=== PATIENT | male | born 1975 ===

== ENCOUNTER 2016-06-21 14:20 | Emergency (ER) | payer SELFPAY ==
[2016-06-21 14:20] VITALS: BMI 25.8
[2016-06-21 14:27] VITALS: BP 139/91; PULSE 100; RESP 20; TEMP 97.9; O2SAT 99
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
[2016-06-21] MEDS ORDERED: Acetaminophen-Codeine 300/30 mg Tab PO STA (14:49)
[2016-06-21] MEDS ORDERED: Acetaminophen-Codeine 300/30 mg Tab PO ONE (15:02)
== END 2016-06-21 15:06 | disposition home or self-care (01) ==
LOC: C.ER 14:20
DX: S86.811A Strain of other muscle(s) and tendon(s) at lower leg level, right leg, initial encounter (principal); W10.9XXA Fall (on) (from) unspecified stairs and steps, initial encounter

== ENCOUNTER 2016-10-08 14:52 | Emergency (ER) | payer OTHER ==
[2016-10-08 15:23] VITALS: BMI 25.0
[2016-10-08 15:24] VITALS: BP 131/88; PULSE 81; RESP 18; TEMP 98.1; O2SAT 99
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
== END 2016-10-08 16:30 | disposition home or self-care (01) ==
LOC: C.ER 14:52
DX: S13.4XXA Sprain of ligaments of cervical spine, initial encounter (principal); V43.52XA Car driver injured in collision with other type car in traffic accident, initial encounter; M62.838 Other muscle spasm

== ENCOUNTER 2017-11-25 07:04 | Emergency (ER) | payer OTHER ==
[2017-11-25 07:05] VITALS: BMI 25.0
[2017-11-25 07:13] VITALS: RESP 18
[2017-11-25] MEDS ORDERED: Sodium Chloride 0.9% 1,000 ML IV STA (07:24)
[2017-11-25] MEDS ORDERED: Sodium Chloride 0.9% 1,000 ML ONE (07:39)
[2017-11-25 08:03] LABS: BASO # 0.1 K/uL (0.0-0.2); BASO % 0.7 % (0.0-2.0); HEMOGLOBIN 14.3 g/dL (12.0-18.0); LYMPH # 0.9 K/uL (1.0-4.3); LYMPH % 4.9 % (20.0-40.0); MEAN CELL VOLUME 80.1 fL (80.0-94.0); MEAN CORPUSCULAR HEMOGLOBIN 26.9 pg (27.0-31.0); MEAN CORPUSCULAR HGB CONC 33.6 g/dL (33.0-37.0); MEAN PLATELET VOLUME 8.6 fL (7.2-11.7); MONO # 0.5 K/uL (0.0-0.8); NEUT # 16.1 K/uL (1.8-7.0); NEUT % 91.4 % (50.0-75.0); PLATELET COUNT 301 K/uL (130-400); RBC 5.33 Mil/uL (4.40-5.90); RED CELL DISTRIBUTION WIDTH 13.9 % (11.5-14.5); WHITE BLOOD COUNT 17.6 K/uL (4.8-10.8)
[2017-11-25 08:14] LABS: URINE AMORPHOUS SEDIMENT FEW /ul (<OCC); URINE BILIRUBIN NEGATIVE (NEGATIVE); URINE BLOOD NEGATIVE (NEGATIVE); URINE CLARITY Hazy (Clear); URINE COLOR Yellow (YELLOW); URINE GLUCOSE (UA) NORMAL (Normal); URINE LEUKOCYTE ESTERASE NEG Leu/uL (Negative); URINE PROTEIN NEGATIVE (NEGATIVE); URINE UROBILINOGEN NORMAL mg/dL (0.2-1.0)
[2017-11-25 08:20] LABS: INR 1.2; PROTHROMBIN TIME 12.6 SECONDS (9.7-12.2)
[2017-11-25 08:25] LABS: BLOOD UREA NITROGEN 16 mg/dL (9-20); CALCIUM 9.1 mg/dl (8.6-10.4); GFR NON-AFRICAN AMERICAN > 60; LIPASE 138 U/L (23-300)
[2017-11-25 08:31] LABS: ALB/GLOB RATIO 1.4 (1.0-2.1); ALBUMIN 4.9 g/dL (3.5-5.0); ALT/SGPT 22 U/L (21-72); AST/SGOT 44 U/L (17-59)
[2017-11-25 09:05] LABS: BANDS 2 % (0-2); BASOPHIL 1 % (0-2); LYMPHOCYTE 7 % (20-40); MONOCYTE 3 % (0-10); NEUTROPHIL 87 % (50-75); PLATELET ESTIMATE NORMAL (NORMAL); TOTAL CELLS COUNTED 100
[2017-11-25 09:09] VITALS: TEMP 98
--- NOTE | 2017-11-25 10:11 | C.PDOC ---
History Of Present Illness 42 y/o male presents to ED for evaluation of abdominal pain associated with nausea since yesterday. Otherwise, denies vomiting, diarrhea, constipation, urinary symptoms, back pain, fever, or chills. Time Seen by Provider: 11/25/17 07:20 Chief Complaint (Nursing): Abdominal Pain History Per: Patient History/Exam Limitations: no limitations Onset/Duration Of Symptoms: Days Current Symptoms Are (Timing): Still Present Location Of Pain/Discomfort: RUQ, Epigastric, LUQ Radiation Of Pain To:: None Quality Of Discomfort: "Pain" Associated Symptoms: Nausea. denies: Loss Of Appetite, Back Pain, Chest Pain, Constipation, Urinary Symptoms Exacerbating Factors: None Alleviating Factors: None Recent travel outside of the [place]: No Additional History Per: Patient Past Medical History Reviewed: Historical Data, Nursing Documentation, Vital Signs Vital Signs: Last Vital Signs Temp 98 F 11/25/17 12:03 Pulse 69 11/25/17 12:03 Resp 18 11/25/17 12:03 BP 126/79 11/25/17 12:03 Pulse Ox 99 11/25/17 17:07 - Medical History PMH: HTN, Hypercholesterolemia Family History: States: Unknown Family Hx - Social History Hx Tobacco Use: No Hx Alcohol Use: No Hx Substance Use: No - Immunization History Hx Tetanus Toxoid Vaccination: No Hx Influenza Vaccination: No Hx Pneumococcal Vaccination: No Review Of Systems Except As Marked, All Systems Reviewed And Found Negative. Constitutional: Negative for: Fever, Chills Cardiovascular: Negative for: Chest Pain Respiratory: Negative for: Shortness of Breath Gastrointestinal: Positive for: Nausea, Abdominal Pain. Negative for: Vomiting , Diarrhea, Constipation Genitourinary: Negative for: Dysuria, Frequency, Hematuria, Penile Discharge Musculoskeletal: Negative for: Back Pain Neurological: Negative for: Headache, Dizziness Physical Exam - Physical Exam Appears: Non-toxic, No Acute Distress Skin: Normal Color, Warm, Dry Head: Atraumatic, Normacephalic Eye(s): bilateral: Normal Inspection Oral Mucosa: Moist Neck: Normal ROM, Supple Cardiovascular: Rhythm Regular, No Murmur Respiratory: Normal Breath Sounds, No Rales, No Rhonchi, No Wheezing Gastrointestinal/Abdominal: Bowel Sounds, Soft, Tenderness (epigastric, RUQ, LUQ ), No Distention, No Guarding, No Rebound Back: No CVA Tenderness Extremity: Normal ROM Neurological/Psych: Oriented x3, Normal Speech ED Course And Treatment - Laboratory Results Result Diagrams: 11/25/17 07:40 11/25/17 07:40 O2 Sat by Pulse Oximetry: 99 (on RA) Pulse Ox Interpretation: Normal - CT Scan/US Abdomen Ultrasound Other Rad Studies (CT/US): Read By Radiologist, Radiology Report Reviewed CT/US Interpretation: FINDINGS: LIVER: Measures 18.7 cm in sagittal dimension. 1.1 x 1.5 x 1.0 cm echogenic lesion within the right hepatic lobe measures approximately 1.0 x 1.1 x 1.5 cm. The main portal vein appears patent with normal directional flow. No intrahepatic bile duct dilatation. GALLBLADDER: Cholelithiasis. No gallbladder wall thickening. Negative sonographic Merchant's sign as assessed by the jr. systems administrator. COMMON BILE DUCT: Measures 6 mm. PANCREAS: Not well visualized. RIGHT KIDNEY: Measures 11.2 x 4.8 x 6.2 cm. No obstructing calculus or hydronephrosis identified. LEFT KIDNEY: Measures 10.2 x 5.5 x 4.6cm. No obstructing calculus or hydronephrosis identified. SPLEEN: Measures approximately 10.4 cm. AORTA: Limited views appear unremarkable. IVC: Limited views appear unremarkable. OTHER FINDINGS: None. IMPRESSION: Cholelithiasis. 1.1 x 1.5 x 1.0 cm echogenic lesion identified within the right hepatic lobe, indeterminate. Cross-sectional imaging may be considered for further characterization if indicated. Medical Decision Making Medical Decision Making: Plan: Blood work Urinalysis Abdomen ultrasound Protonix Zofran IV fluids Progress note: On re-eval, pt is resting comfortably, no acute distress. Abdomen remains soft. Pt reports feeling better. Patient is being discharged home and is instructed to follow up with PMD and eye specialist within 2-3 days. Return to ED if symptoms worsen. Disposition - Disposition Referrals: Keynoa Villalobos MD [Medical Doctor] - Flo Barroso MD [Staff Provider] - Disposition: HOME/ ROUTINE Disposition Time: 11:53 Condition: STABLE Additional Instructions: Follow up with PMD and eye specialist within 2-3 days. Return to ED immediately if feel worse. Instructions: Gallstones Forms: [employer] (Hebrew), Work Excuse - Clinical Impression Clinical Impression: Cholelithiasis - PA / LOCUM TENENS / Resident Statement MD/DO has reviewed & agrees with the documentation as recorded. - Scribe Statement The provider has reviewed the documentation as recorded by the Scribe Vicky Saba All medical record entries made by the Michael were at my direction and personally dictated by me. I have reviewed the chart and agree that the record accurately reflects my personal performance of the history, physical exam, medical decision making, and the department course for this patient. I have also personally directed, reviewed, and agree with the discharge instructions and disposition.
--- NOTE | 2017-11-25 10:43 | US ---
HISTORY: ruq pain, epigastric pain COMPARISON: None available TECHNIQUE: Sonographic evaluation of the abdomen. FINDINGS: LIVER: Measures 18.7 cm in sagittal dimension. 1.1 x 1.5 x 1.0 cm echogenic lesion within the right hepatic lobe measures approximately 1.0 x 1.1 x 1.5 cm. The main portal vein appears patent with normal directional flow. No intrahepatic bile duct dilatation. GALLBLADDER: Cholelithiasis. No gallbladder wall thickening. Negative sonographic Merchant's sign as assessed by the chemical process equipment operator. COMMON BILE DUCT: Measures 6 mm. PANCREAS: Not well visualized. RIGHT KIDNEY: Measures 11.2 x 4.8 x 6.2 cm. No obstructing calculus or hydronephrosis identified. LEFT KIDNEY: Measures 10.2 x 5.5 x 4.6cm. No obstructing calculus or hydronephrosis identified. SPLEEN: Measures approximately 10.4 cm. AORTA: Limited views appear unremarkable. IVC: Limited views appear unremarkable. OTHER FINDINGS: None. IMPRESSION: Cholelithiasis. 1.1 x 1.5 x 1.0 cm echogenic lesion identified within the right hepatic lobe, indeterminate. Cross-sectional imaging may be considered for further characterization if indicated.
[2017-11-25 12:04] VITALS: BP 126/79; PULSE 69
[2017-11-25 17:07] VITALS: O2SAT 99
== END 2017-11-25 12:03 | disposition home or self-care (01) ==
LOC: C.ER 07:04
DX: K80.20 Calculus of gallbladder without cholecystitis without obstruction (principal)
CPT/HCPCS: 76700; 80053; 81001; 83690; 85025; 85610; 85730; 96361; 96374; 96375; 99284; C9113; J1885; J2405; J7030

== ENCOUNTER 2018-04-22 06:47 | Emergency (ER) | payer OTHER ==
[2018-04-22 06:47] VITALS: BMI 25.0
[2018-04-22 07:01] VITALS: TEMP 98.4; O2SAT 100
[2018-04-22] MEDS ORDERED: Aspirin 325 mg EC Tablets PO STA (07:13)
[2018-04-22 07:20] LABS: BASO # 0.1 K/uL (0.0-0.2); BASO % 0.9 % (0.0-2.0); EOS # 0.1 K/uL (0.0-0.7); HEMOGLOBIN 15.2 g/dL (12.0-18.0); LYMPH # 1.9 K/uL (1.0-4.3); LYMPH % 31.4 % (20.0-40.0); MEAN CELL VOLUME 81.2 fL (80.0-94.0); MEAN CORPUSCULAR HEMOGLOBIN 26.7 pg (27.0-31.0); MEAN CORPUSCULAR HGB CONC 32.9 g/dL (33.0-37.0); MEAN PLATELET VOLUME 8.4 fL (7.2-11.7); MONO # 0.4 K/uL (0.0-0.8); MONO % 5.9 % (0.0-10.0); NEUT # 3.6 K/uL (1.8-7.0); NEUT % 59.8 % (50.0-75.0); NRBC % 0.1 % (0.0-2.0); RBC 5.68 Mil/uL (4.40-5.90); RED CELL DISTRIBUTION WIDTH 13.6 % (11.5-14.5)
[2018-04-22] MEDS ORDERED: Aspirin 325 mg EC Tablets PO ONE (07:21)
[2018-04-22 07:28] LABS: WHITE BLOOD COUNT 6.1 K/uL (4.8-10.8)
--- NOTE | 2018-04-22 07:28 | C.PDOC ---
History Of Present Illness 42 year old male presents to the ED for evaluation of intermediate left sided chest pain for 1 week. The patient describes the chest pain as dull. He reports having a headache and feeling lightheaded since last night. Denies fever, chills, shortness of breath, cough, and any other associated symptoms. Time Seen by Provider: 04/22/18 07:04 Chief Complaint (Nursing): Chest Pain History Per: Patient History/Exam Limitations: no limitations Onset/Duration Of Symptoms: Days Current Symptoms Are (Timing): Still Present Severity: Mild Pain Scale Rating Of: 4 Quality: Dull Associated Symptoms: denies: Nausea, Dyspnea Modifying Factors: None Exacerbating Factors: None Alleviating Factors: None Recent travel outside of the [place]: No Past Medical History Reviewed: Historical Data, Nursing Documentation, Vital Signs Vital Signs: Last Vital Signs Temp 98.4 F 04/22/18 06:59 Pulse 79 04/22/18 06:59 Resp 16 04/22/18 06:59 BP 153/89 H 04/22/18 06:59 Pulse Ox 100 04/22/18 06:59 - Medical History PMH: HTN, Hypercholesterolemia (not taking meds) Family History: States: Unknown Family Hx - Social History Hx Tobacco Use: No Hx Alcohol Use: No Hx Substance Use: No - Immunization History Hx Tetanus Toxoid Vaccination: No Hx Influenza Vaccination: No Hx Pneumococcal Vaccination: No Review Of Systems Constitutional: Negative for: Fever Eyes: Negative for: Pain ENT: Negative for: Ear Pain Cardiovascular: Positive for: Chest Pain Respiratory: Negative for: Cough, Shortness of Breath Gastrointestinal: Negative for: Nausea Musculoskeletal: Negative for: Neck Pain Skin: Negative for: Rash Neurological: Negative for: Weakness Psych: Negative for: Anxiety Physical Exam - Physical Exam Appears: Well, Non-toxic Skin: Normal Color Head: Atraumatic Eye(s): bilateral: Normal Inspection, PERRL, EOMI Ear(s): Bilateral: Normal Nose: Normal Oral Mucosa: Moist Tongue: Normal Appearing Lips: Normal Appearing Throat: Normal Neck: Normal, Normal ROM Lymphatic: Deferred Chest: Symmetrical Cardiovascular: Rhythm Regular, No Edema Respiratory: Normal Breath Sounds Gastrointestinal/Abdominal: Normal Exam Back: Normal Inspection Extremity: Normal ROM, No Pedal Edema Extremity: Bilateral: Atraumatic Pulses: Left Carotid: Normal, Right Carotid: Normal, Left Radial: Normal, Right Radial: Normal Neurological/Psych: Oriented x3, Normal Speech Disoriented To: Person ED Course And Treatment - Laboratory Results Result Diagrams: 04/22/18 07:17 04/22/18 07:17 ECG: Interpreted By Me ECG Rhythm: Sinus Rhythm Interpretation Of ECG: No ST elevation. QT normal. Rate From EC O2 Sat by Pulse Oximetry: 100 (RA) Pulse Ox Interpretation: Normal - Radiology CXR: Interpreted by Me CXR Interpretation: Yes: No Acute Disease Medical Decision Making Medical Decision Making: Initial plan: -EKG -Blood sent. -CXR -Aspirin Progress/Update: No signs of ACS. Patient will follow up with his PMD, BP meds will be added. Prescribed Enalapril Maleate and Aspirin. Patient stable for discharge home. Disposition - Disposition Disposition: HOME/ ROUTINE Disposition Time: 07:59 Condition: STABLE Prescriptions: Aspirin [Adult Aspirin] 81 mg PO DAILY #14 tablet. Enalapril Maleate 5 mg PO DAILY 14 Days tablet Instructions: Chest Pain Forms: Gen Discharge Inst Sri Lankan, General Discharge Instructions, [employer] (Belizean), Work Excuse - POA Present On Arrival: None - Clinical Impression Clinical Impression: Chest pain - Scribe Statement The provider has reviewed the documentation as recorded by the Scribe (Saranya Nieves) Provider Attestation: All medical record entries made by the Scribe were at my direction and personally dictated by me. I have reviewed the chart and agree that the record accurately reflects my personal performance of the history, physical exam, medical decision making, and the department course for this patient. I have also personally directed, reviewed, and agree with the discharge instructions and disposition.
[2018-04-22 07:33] LABS: ALB/GLOB RATIO 1.5 (1.0-2.1); ALBUMIN 4.8 g/dL (3.5-5.0); ALT/SGPT 25 U/L (21-72); AST/SGOT 23 U/L (17-59); BLOOD UREA NITROGEN 15 mg/dL (9-20); CALCIUM 9.1 mg/dl (8.6-10.4); GFR NON-AFRICAN AMERICAN > 60
[2018-04-22 08:19] VITALS: BP 130/79; PULSE 71; RESP 13
--- NOTE | 2018-04-22 10:13 | RAD ---
Date of service: 04/22/2018 HISTORY: chest pain COMPARISON: Chest radiographs 01/05/2014. FINDINGS: LUNGS: No active pulmonary disease. PLEURA: No significant pleural effusion identified, no pneumothorax apparent. CARDIOVASCULAR: No aortic atherosclerotic calcification present. Normal cardiac size. No pulmonary vascular congestion. OSSEOUS STRUCTURES: No significant abnormalities. VISUALIZED UPPER ABDOMEN: Limited elevation left hemidiaphragm. OTHER FINDINGS: None. IMPRESSION: Nonspecific limited elevation left hemidiaphragm. No acute infiltrate, pleural effusion or pneumothorax. No pulmonary vascular congestion.
--- NOTE | 2018-04-24 14:44 | CARD ---
APPROVED REPORT Date of service: 04/22/2018 EKG Measurement Heart [id number] <Conclusion> Normal sinus rhythm Normal ECG
== END 2018-04-22 08:20 | disposition home or self-care (01) ==
LOC: C.ER 06:47
DX: R07.9 Chest pain, unspecified (principal)

== ENCOUNTER 2018-06-02 06:47 | Outpatient (CLI) | payer OTHER | END 2018-06-02 06:48 | disposition home or self-care (01) | LOC: C.CARD 06:47 | DX: R07.9 Chest pain, unspecified (principal) ==

== ENCOUNTER 2018-06-25 05:20 | Emergency (ER) | payer OTHER ==
[2018-06-25 05:21] VITALS: BMI 25.0
[2018-06-25 05:31] VITALS: O2SAT 100
--- NOTE | 2018-06-25 05:39 | C.PDOC ---
History Of Present Illness Patient presents with abdominal pain after eating out" oily thing" Cramping , burning, decreased po intake. No diarrhea Time Seen by Provider: 06/25/18 05:39 Chief Complaint (Nursing): Abdominal Pain History Per: Patient History/Exam Limitations: no limitations Onset/Duration Of Symptoms: Hrs Current Symptoms Are (Timing): Still Present Context: Food Severity: Moderate Pain Scale Rating Of: 4 Location Of Pain/Discomfort: Diffuse Radiation Of Pain To:: None Quality Of Discomfort: Dull, Burning Associated Symptoms: Nausea, Diarrhea. denies: Fever, Chills Alleviating Factors: None Last Bowel Movement: Today Recent travel outside of the [place]: No Additional History Per: Patient Past Medical History Reviewed: Historical Data, Nursing Documentation, Vital Signs Vital Signs: Last Vital Signs Temp 97.6 F 06/25/18 05:26 Pulse 60 06/25/18 05:26 Resp 20 06/25/18 05:26 BP 160/82 H 06/25/18 05:26 Pulse Ox 100 06/25/18 05:26 - Medical History PMH: HTN, Hypercholesterolemia (not taking meds) Family History: States: No Known Family Hx - Social History Hx Tobacco Use: No Hx Alcohol Use: No Hx Substance Use: No - Immunization History Hx Tetanus Toxoid Vaccination: No Hx Influenza Vaccination: No Hx Pneumococcal Vaccination: No Review Of Systems Constitutional: Negative for: Fever, Chills Cardiovascular: Negative for: Chest Pain Respiratory: Negative for: Shortness of Breath Gastrointestinal: Positive for: Nausea, Vomiting, Abdominal Pain Musculoskeletal: Negative for: Back Pain Skin: Negative for: Rash Neurological: Negative for: Weakness Psych: Negative for: Anxiety Physical Exam - Physical Exam Appears: Non-toxic, No Acute Distress Skin: Warm, Dry Head: Normacephalic Eye(s): bilateral: Normal Inspection Oral Mucosa: Moist Neck: Supple Chest: Symmetrical Cardiovascular: Rhythm Regular Respiratory: No Rales, No Rhonchi, No Wheezing Gastrointestinal/Abdominal: Soft, Tenderness, Distention, No Guarding, No Rebound Back: No CVA Tenderness Extremity: Normal ROM Extremity: Bilateral: Atraumatic Pulses: Left Dorsalis Pedis: Normal, Right Dorsalis Pedis: Normal Neurological/Psych: Oriented x3 Gait: Steady ED Course And Treatment ECG: Interpreted By Me, Viewed By Me ECG Rhythm: Sinus Rhythm (62), Nonspecific Changes O2 Sat by Pulse Oximetry: 100 Pulse Ox Interpretation: Normal Disposition Counseled Patient/Family Regarding: Studies Performed, Diagnosis - Disposition Disposition Time: 05:39 Condition: FAIR Forms: [employer] (Kosovan) - Clinical Impression Clinical Impression: Abdominal pain Physician Patient Turnover Patient Signed Over To: Donte Carlton V Handoff Comments: pending ct scan, re-eval and dispo
[2018-06-25] MEDS ORDERED: Sodium Chloride 0.9% 1,000 ML IV ONE (05:41)
[2018-06-25] MEDS ORDERED: Sodium Chloride 0.9% 1,000 ML ONE (06:03)
[2018-06-25 06:30] LABS: ALB/GLOB RATIO 1.5 (1.0-2.1); ALBUMIN 4.6 g/dL (3.5-5.0); ALT/SGPT 21 U/L (21-72); AST/SGOT 30 U/L (17-59); BLOOD UREA NITROGEN 12 mg/dL (9-20); CALCIUM 9.5 mg/dl (8.6-10.4); GFR NON-AFRICAN AMERICAN > 60; LIPASE 69 U/L (23-300)
[2018-06-25 06:31] LABS: BASO % 0.2 % (0.0-2.0); EOS % 0.1 % (0.0-4.0); HEMOGLOBIN 14.5 g/dL (12.0-18.0); LYMPH # 0.9 K/uL (1.0-4.3); LYMPH % 6.9 % (20.0-40.0); MEAN CELL VOLUME 80.2 fL (80.0-94.0); MEAN CORPUSCULAR HEMOGLOBIN 27.2 pg (27.0-31.0); MEAN CORPUSCULAR HGB CONC 33.9 g/dL (33.0-37.0); MEAN PLATELET VOLUME 8.6 fL (7.2-11.7); MONO # 0.3 K/uL (0.0-0.8); MONO % 2.2 % (0.0-10.0); NEUT # 11.9 K/uL (1.8-7.0); NEUT % 90.6 % (50.0-75.0); PLATELET COUNT 325 K/uL (130-400); RBC 5.31 Mil/uL (4.40-5.90); RED CELL DISTRIBUTION WIDTH 13.5 % (11.5-14.5); WHITE BLOOD COUNT 13.2 K/uL (4.8-10.8)
[2018-06-25 06:39] LABS: URINE AMORPHOUS SEDIMENT MODERATE /ul (<OCC)
[2018-06-25 06:40] LABS: URINE BILIRUBIN NEGATIVE (NEGATIVE); URINE CLARITY SLIGHT-CLOUDY (Clear); URINE COLOR YELLOW (YELLOW); URINE GLUCOSE (UA) 100 mg/dL (Normal)
[2018-06-25 06:41] LABS: PH,URINE 7.5 (5.0-8.0); URINE BLOOD NEGATIVE (NEGATIVE); URINE LEUKOCYTE ESTERASE NEGATIVE Leu/uL (Negative); URINE PROTEIN NEGATIVE (NEGATIVE); URINE UROBILINOGEN 0.2 mg/dL (0.2-1.0)
[2018-06-25] MEDS ORDERED: Iohexol 300 100 ML IJ ONE (07:56)
[2018-06-25 08:11] LABS: EOSINOPHIL 1 % (0-4); LYMPHOCYTE 8 % (20-40); MONOCYTE 2 % (0-10); NEUTROPHIL 88 % (50-75); PLATELET ESTIMATE NORMAL (NORMAL); REACTIVE LYMPHOCYTES 1 % (0-0); TOTAL CELLS COUNTED 100
[2018-06-25] MEDS ORDERED: DiphenhydrAMINE 50 mg/ml Inj IVP STA ×2 (08:29)
[2018-06-25] MEDS ORDERED: DiphenhydrAMINE 50 mg/ml Inj ONE (08:33)
[2018-06-25 08:38] VITALS: RESP 18
--- NOTE | 2018-06-25 09:31 | CT ---
CT abdomen and pelvis HISTORY: Abdominal pain. Comparison: None. TECHNIQUE: Multiple contiguous axial images were performed through the abdomen and pelvis with the use of intravenous contrast. Subsequently, sagittal and coronal reformatted images were obtained. This CT exam was performed using one or more of the following dose reduction techniques: Automated exposure control, adjustment of the mA and/or kV according to patient size, and/or use of iterative reconstruction technique. Findings: Lung bases are clear. No pleural or pericardial effusion. Liver and gallbladder are preserved. Spleen is preserved. Adrenal glands are preserved. Pancreas is preserved. Few mildly thickened and distended loops of small bowel in the upper abdomen. Right kidney: No gross calculi or hydronephrosis. Left Kidney: No gross calculi or hydronephrosis. Urinary bladder is preserved. Heterogeneous and prominent prostate as well as seminal vesicles. Fecal retention in the colon. Underdistention and or mild thickening of the descending colon. Appendix is visualized, at the upper limits of normal for size measuring up to 8 millimeters. No gross adjacent periappendiceal fat stranding or fluid. Clinical correlation. Few shotty para-aortic and inguinal lymph nodes. Degenerative changes in the spine. Few small bone islands in the right femur. Impression: 1. Few mildly thickened and distended loops of small bowel in the upper abdomen. This may represent a mild enteritis. Clinical correlation. 2. Fecal retention in the colon. Underdistention and or mild thickening of the descending colon. Clinical correlation. 3. Appendix is visualized, at the upper limits of normal for size measuring up to 8 millimeters. No gross adjacent periappendiceal fat stranding or fluid. Clinical correlation. 4. Heterogeneous and prominent prostate as well as seminal vesicles. Clinical correlation. Additional findings as above.
[2018-06-25 10:00] VITALS: BP 136/82; PULSE 80; TEMP 98.2
--- NOTE | 2018-06-26 15:16 | CARD ---
APPROVED REPORT Date of service: 06/25/2018 EKG Measurement Heart [id number] <Conclusion> nsr. normal ECG
== END 2018-06-25 10:00 | disposition home or self-care (01) ==
LOC: C.ER 05:20
DX: K52.9 Noninfective gastroenteritis and colitis, unspecified (principal); R10.9 Unspecified abdominal pain; L50.9 Urticaria, unspecified
CPT/HCPCS: 74177; 80053; 81001; 83690; 85025; 93005; 96361; 96374; 96375; 99285; C9113; J1200; J1885; J2405; J2930; J7030; Q9967